=== PATIENT | male | born 1995 | race Caucasian/White ===

== ENCOUNTER → 2019-10-16 14:48 | Outpatient (CLI) | payer BC, SELFPAY ==
--- NOTE | 2019-10-16 | DI.CT.S_ITS ---
PROCEDURE: CT ABDOMEN PELVIS WO CON INDICATIONS: Unspecified abdominal pain, left flank pain, painful urinating since Jul 2019 TECHNIQUE: Noncontrast 5 mm thick sections acquired from the diaphragms to the symphysis. 5 mm thick coronal and sagittal reformats were then performed. For radiation dose reduction, the following was used: automated exposure control, adjustment of mA and/or kV according to patient size. COMPARISON: None. FINDINGS: Image quality: Excellent. Lung bases: Lung bases are clear. Heart size is normal. Urinary system: Both kidneys are normal in size. No kidney stones. No hydronephrosis or perinephric fat stranding. Both ureters appear non-dilated throughout their expected courses. Bladder wall thickness is normal; no calcified bladder stones. Other solid organs: Liver is normal in size. Gallbladder appears normal. Pancreas is normal in contours. Spleen is normal in size. No adrenal nodules. Peritoneum and bowel: Unenhanced bowel loops demonstrate normal wall thickness and caliber. No free fluid or air. Nodes and vessels: No retroperitoneal or mesenteric adenopathy by size criteria. Aorta and inferior vena cava are normal in caliber. Abdominal wall: No ventral hernias. Pelvis: No free pelvic fluid. No inguinal hernias or adenopathy. Bones: No suspicious bony lesions. No vertebral body compression fractures. IMPRESSION: No hydronephrosis or nephrolithiasis found. No inflammatory process associated with the kidneys, ureters or bladder is found. A source of current symptoms is not seen. Dictated by: Wale Cottrell M.D. on 10/16/2019 at 16:19 Approved by: Wale Cottrell M.D. on 10/16/2019 at 16:20
== END ==
PROVIDERS: Family Provider Nurse Practitioner Family; PCP Nurse Practitioner Family; Visit Provider Urology
DX: R10.9 Unspecified abdominal pain (principal); R30.9 Painful micturition, unspecified
CPT/HCPCS: 74176

== ENCOUNTER → 2021-04-23 17:50 | Outpatient (CLI) | payer BC, SELFPAY | PROVIDERS: Family Provider Nurse Practitioner Family; PCP Nurse Practitioner Family; Referring Provider Family Medicine; Visit Provider Family Medicine | DX: M75.42 Impingement syndrome of left shoulder (principal); Z53.20 Procedure and treatment not carried out because of patient's decision for unspecified reasons ==

== ENCOUNTER → 2021-09-24 10:01 | Outpatient (CLI) | payer OTHER, MEDICAID, SELFPAY ==
[2021-09-24 11:38] LABS: COVID19 -Nasal RAPID Negative (Negative)
== END ==
PROVIDERS: Family Provider Nurse Practitioner Family; PCP Nurse Practitioner Family; Visit Provider Nurse Practitioner Family
DX: Z20.822 Contact with and (suspected) exposure to COVID-19 (principal)
CPT/HCPCS: 87635; C9803

== ENCOUNTER 2021-09-26 06:28 | Day surgery (SDC) | payer OTHER, MEDICAID, SELFPAY ==
[2021-09-23 13:02] VITALS: BMI 39.5
[2021-09-26] VITALS (13 sets, daily range): BP systolic 72–140; BP diastolic 31–96; PULSE 73–90; RESP 12–18; TEMP 36.3–37.1; O2SAT 95–100; BMI 37.5
[2021-09-26] MEDS: CELECOXIB 200 MG CAPSULE PO (08:40)
[2021-09-26] MEDS: LACTATED RINGERS 1,000 ML 42 ML IV (08:41)
--- NOTE | 2021-09-26 09:42 | PM.PREOP ---
Pre-operative Note COVID-19 COVID-19 status: Negative Result date/Date tested (Pos, Neg/Pending): 09/24/21 Interval Note History & Physical reviewed/Exam performed by Physician: Yes Changes to H&P: Yes
[2021-09-26] MEDS: CEFAZOLIN 2 GM/20 ML SYRINGE 1 GM IV (10:25)
--- NOTE | 2021-09-26 10:39 | SUR.OPER ---
Lateral on padded OR bed with lopez bag positioner, head on pillow, gel axillary roll in place, bottom leg bent with gel pad under knee to foot, upper leg straight and supported with pillows. Operative arm secured in shoulder positioning suspension device. non-operative arm secured on padded arm board. Safety belt at hip, tape over blanket securing lower legs.
[2021-09-26] MEDS: BUPIVACAINE 0.5% W/ EPI (PF) 30 ML VIAL INJ (10:44)
[2021-09-26] MEDS: SODIUM CHLORIDE IRRIG SOLUTION 3,000 ML, EPINEPHrine 1 MG IRR (10:46)
--- NOTE | 2021-09-26 11:17 | PM.OP.1 ---
Operative Date/Time/Diagnoses Date of procedure: 09/26/21 Time of procedure: 11:17 Pre-op diagnosis: Left shoulder partial-thickness rotator cuff tear Post-op diagnosis: other (Left shoulder impingement syndrome) Procedure & Clinicians Procedure: 1.Left shoulder arthroscopic major debridement with coracoacromial ligament release, subacromial bursectomy, and acromioplasty. 2. Suprascapular nerve block for postoperative pain control performed by surgeon. Same procedure as scheduled: Yes Indications: The patient is a 25-year-old man who has had ongoing left shoulder pain that has not responded to non operative measures. His MRI shows some irritation of the rotator cuff and subacromial bursitis. He may have a partial-thickness rotator cuff tear. Discussion regarding the surgery included arthroscopic evaluation followed by either debridement or repair as appropriate. The patient agreed after discussion the risks benefits and alternatives. Risks discussed included but were not limited to: Failure to improve, stiffness, infection, nerve damage, deep venous thrombosis, pulmonary embolism, stroke, myocardial infarction, permanent paralysis and . 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 Surgeon: Jose Maria Ortega Click Yes if Unassisted: Yes Anesthesia Type: General, Peripheral nerve block and Local Operative Notes Findings: 1. Normal glenohumeral cartilage 2. Normal glenohumeral labrum 3. Normal glenohumeral ligaments 4. Normal-appearing subscapularis insertion 5. Normal biceps and biceps origin 6. Normal supraspinatus 7. Normal infraspinatus 8. Normal axillary pouch 9. Bursal cuff intact 10. Type 2 acromion, the synchondrosis of the mesoacromion was not exposed. 11. Acromioclavicular joint not visualized 12. Examination under anesthesia notable for full range of motion and no evidence for pathological laxity. Closure Type: primary Specimen(s): none sent Estimated Blood Loss (mL): 10 Blood products transfused: none Procedure in detail: The patient was seen in the preoperative area where he identified the left shoulder as the operative site and this was marked with my initials. He was offered but refused an interscalene block. He was taken to the operating room, placed on the operating room table in a supine position where he underwent the induction of general anesthesia. His shoulder was examined under anesthesia with the result given above. A clinical project manager-out was performed. He was then repositioned in the right lateral decubitus position with padding for all pressure points. He was stabilized in this position using the lopez bag and adhesive tape. He received preoperative antibiotics, the left arm was prepared for the fingertips to the base the neck with ChloraPrep in the usual fashion and draped through sterile drapes. The arm was placed in 10 lb of balanced skin suspension. Subcutaneous landmarks were outlined on the skin with a marking pen. Portal sites were selected. Posterior portal was created for the arthroscope and diagnostic arthroscopy ensued with result given above. There was no need for surgical arthroscopy in the glenohumeral joints of the scope was withdrawn and placed in the subacromial bursa through the posterior portal. A lateral portal was created for instrumentation. The rotator cuff did not appear to need a repair. The coracoacromial ligament was released from the anterior acromion and a bursectomy performed for visualization. An acromial smoothing was performed due to the type 2 acromion. At this point all arthroscopic equipment was removed. The wounds were closed with 4-0 Monocryl and Steri-Strips. A suprascapular nerve block was performed with 10 mL 0.5% Marcaine with epinephrine for postoperative pain control. An additional 20 mL of this solution was injected with 10 in the subacromial space and tendon the subcutaneous tissues for postoperative pain control. Dressings of sterile 4x4s, an ABD and adhesive dressing were applied. The patient's arm was placed in a sling. He was transported to the recovery room in good condition having tolerated the procedure well. Complications: none Post-operative Condition: stable Disposition: PACU Plan for aftercare: The patient will be discharged today. He will be started on a subacromial decompression physical therapy protocol. Prescriptions have been sent in for oxycodone and Vistaril for pain relief. He will follow up with me in 2 weeks.
== END 2021-09-26 12:55 | disposition home or self-care (01) ==
PROVIDERS: Family Provider Nurse Practitioner Family; PCP Nurse Practitioner Family; Referring Provider Orthopaedic Surgery; Visit Provider Orthopaedic Surgery
PROC: (CPT 29827; principal; 2021-09-26 10:15)
DX: M75.112 Incomplete rotator cuff tear or rupture of left shoulder, not specified as traumatic (principal); M75.42 Impingement syndrome of left shoulder; S46.812A Strain of other muscles, fascia and tendons at shoulder and upper arm level, left arm, initial encounter
CPT/HCPCS: 29826; 29822; J0171; J0690; J1170; J2250; J2704; J3010